=== PATIENT | male | born 1995 | race Hispanic/Latino ===

== ENCOUNTER 2020-02-07 14:34 | Emergency (ER) | payer OTHER ==
--- NOTE | 2020-02-07 16:48 | RAD ---
EXAM: Single view of the chest HISTORY: Cough and fever COMPARISON: None FINDINGS: Single view of the chest shows a normal sized cardiomediastinal silhouette. There is no minnie dence of consolidation, mass, or pleural effusion. The bones are unremarkable. IMPRESSION: No evidence of acute cardiopulmonary disease
== END 2020-02-07 16:57 | disposition home or self-care (01) ==
LOC: ERS 14:34
DX: J06.9 Acute upper respiratory infection, unspecified (principal)
CPT/HCPCS: 71045; 87081; 87430; 87804; U0001